=== PATIENT | male | born 1950 | race Caucasian/White ===

== ENCOUNTER 2017-04-28 11:54 | Inpatient (IN) | payer MEDICARE ==
[~2017-04-28 11:54] MED LIST: AUGMENTIN 875-1 EACH PO; CARDIZEM CD120 MG PO; CLARITIN 10MG T10 MG PO; LACTULOSE10 GM/15 M PO; MEDROL DOSEPAK 24 MG PO; MEGACE SUSP40 MG/M1 PO; MS CONTIN TAB S60 MG PO; MS CONTIN30 MG PO; NEURONTIN 100100 MG PO; OMEPRAZOLE40 MG PO; OXYCODONE HCL10 MG PO; PHENERGAN 25 MG25 M1 PO; POTASSIUM CHLO20 ME1 PO; PRAVACHOL40 MG PO; REMERON 15 MG T15 MG PO; SENOKOT-S TABL1 EACH PO; SYMBICORT 160-1 INHA INH; ZOCOR 40 MG TAB40 MG PO
[2017-04-28 13:28] LABS: HEMOGLOBIN 10.4 gm/dl (14.0-17.5); RED BLOOD COUNT 3.75 M/UL (4.20-5.50); WHITE BLOOD COUNT 17.9 K/UL (4.5-11.0)
[2017-04-28] MEDS ORDERED: MUCINEX600 MG PO (23:48)
[2017-04-28] MEDS ORDERED: ZOFRAN4 MG PO (23:51)
[2017-04-28] MEDS ORDERED: VALIUM 2 MG TAB2 MG PO (23:52)
[2017-04-28] MEDS ORDERED: CONSTULOSE10 GM/15 M PO (23:54)
[2017-04-29] MEDS ORDERED: MUCINEX600 MG PO (00:04)
[2017-04-29] MEDS ORDERED: MEGACE400 MG/10 PO (00:14)
[2017-04-29] MEDS ORDERED: MORPHINE SULFA100 M1 PO (01:06)
[2017-04-29 04:50] LABS: HEMOGLOBIN 9.2 gm/dl (14.0-17.5); RED BLOOD COUNT 3.33 M/UL (4.20-5.50); WHITE BLOOD COUNT 10.5 K/UL (4.5-11.0)
[2017-04-30 07:00] LABS: HEMOGLOBIN 8.3 gm/dl (14.0-17.5); RED BLOOD COUNT 3.01 M/UL (4.20-5.50); WHITE BLOOD COUNT 12.5 K/UL (4.5-11.0)
[2017-04-30 07:17] LABS: BUN/CREATININE RATIO 13 (0-10)
[2017-05-01 04:23] LABS: HEMOGLOBIN 9.1 gm/dl (14.0-17.5); RED BLOOD COUNT 3.31 M/UL (4.20-5.50); WHITE BLOOD COUNT 15.2 K/UL (4.5-11.0)
[2017-05-01 04:41] LABS: BUN/CREATININE RATIO 16 (0-10)
[2017-05-01] MEDS ORDERED: GLUCOTROL5 MG PO (10:30)
[2017-05-01] MEDS ORDERED: AUGMENTIN TAB875 MG PO (10:31)
[2017-05-01] MEDS ORDERED: DEXAMETHASONE6 MG PO (10:32)
[2017-06-05] MEDS ORDERED: ZOCOR 40 MG TAB40 MG PO (19:54)
[2017-06-05] MEDS ORDERED: MIRTAZAPINE15 MG PO (19:55)
[2017-06-05] MEDS ORDERED: COLACE 100MG C100 MG PO (19:57)
[2017-06-09] MEDS ORDERED: LEVAQUIN TAB 2250 MG PO (12:42)
[2017-06-09] MEDS ORDERED: MEGACE 400400 MG/10 PO (12:43)
[2017-06-09] MEDS ORDERED: FLAGYL500 MG PO (12:44)
[2017-06-09] MEDS ORDERED: REMERON 15 MG T15 MG PO (12:46)
[2017-06-09] MEDS ORDERED: K-DUR TAB 20 M20 MEQ PO (12:48)
[2017-06-09] MEDS ORDERED: GLUCOTROL5 MG PO (12:49)
[2017-06-21] MEDS ORDERED: LANTUS100 UNIT/1 SQ (02:01)
[2017-06-21] MEDS ORDERED: DEXAMETHASONE0.5 M1 PO (02:03)
[2017-06-21] MEDS ORDERED: DEXAMETHASONE0.5 MG PO ×2 (02:05→02:06)
== END 2017-05-01 09:35 | disposition home health service (06) | DRG 189 ==
LOC: ER1 11:54 → MED SURG 4 17:00 → ZEROF 17:00 → MED SURG 4 17:00
PROVIDERS: Otolaryngology; ADMIT Family Medicine
DX: J96.21 Acute and chronic respiratory failure with hypoxia (principal); J18.9 Pneumonia, unspecified organism; G93.6 Cerebral edema; J44.0 Chronic obstructive pulmonary disease with (acute) lower respiratory infection; J44.1 Chronic obstructive pulmonary disease with (acute) exacerbation; C34.11 Malignant neoplasm of upper lobe, right bronchus or lung; C79.31 Secondary malignant neoplasm of brain; E87.6 Hypokalemia; I48.91 Unspecified atrial fibrillation; E11.9 Type 2 diabetes mellitus without complications; E83.42 Hypomagnesemia; D63.8 Anemia in other chronic diseases classified elsewhere; D49.89 Neoplasm of unspecified behavior of other specified sites; G89.29 Other chronic pain; R63.4 Abnormal weight loss; Z68.23 Body mass index [BMI] 23.0-23.9, adult; H53.2 Diplopia; Z87.891 Personal history of nicotine dependence; Z92.3 Personal history of irradiation; Z51.5 Encounter for palliative care; Z66 Do not resuscitate; Z79.818 Long term (current) use of other agents affecting estrogen receptors and estrogen levels; Z79.899 Other long term (current) drug therapy; Z79.891 Long term (current) use of opiate analgesic; Z79.51 Long term (current) use of inhaled steroids
CPT/HCPCS: 36415; 70553; 71010; 80053; 82962; 83605; 83735; 85025; 85027; 87040; 94640; 94664; 96374; 96375; 97110; 97116; 97535; 99285; A9577; G0378; J0696; J1100; J1642; J1650; J2270; J2405; J2543; J7030; J7050